=== PATIENT | male | born 1985 | race Two or more races ===

== ENCOUNTER 2019-10-31 23:14 | Emergency (ER) | payer MEDICARE, OTHER ==
[~2019-10-31] VITALS: Ht 180.3 cm; Wt 133.8 kg
--- NOTE | 2019-10-31 23:41 | NUR ---
Dr. De León at bedside for MSE.
[2019-10-31] MEDS ORDERED: predniSONE 20 MG TABLET ONE (23:55)
[2019-10-31] MEDS ORDERED: KETOROLAC TROMETHAMINE 60 MG INJ IM ONE (23:56)
[2019-10-31] MEDS ORDERED: OSELTAMIVIR PHOSPHATE 75 MG CAPSULE ONE (23:56)
[2019-11-01] MEDS ORDERED: ALBUTEROL SULFATE 2.5 MG/3 ML NEBU NEB ONE
[2019-11-01] MEDS ORDERED: predniSONE 20 MG TABLET PO ONE
[2019-11-01] MEDS ORDERED: IPRATROPIUM BROMIDE 0.5 MG/2.5 ML NEBU NEB ONE
[2019-11-01] MEDS ORDERED: KETOROLAC TROMETHAMINE 60 MG INJ IM ONE
[2019-11-01] MEDS ORDERED: OSELTAMIVIR PHOSPHATE 75 MG CAPSULE PO ONE
--- NOTE | 2019-11-01 | NUR ---
Respiratory at bedside.
[2019-11-01] MEDS ORDERED: ALBUTEROL SULFATE 2.5 MG/3 ML NEBU ONE (00:01)
[2019-11-01] MEDS ORDERED: IPRATROPIUM BROMIDE 0.5 MG/2.5 ML NEBU ONE (00:01)
--- NOTE | 2019-11-01 00:22 | NUR ---
Pt out of ER for Xray.
[2019-11-01 00:24] LABS: BASOPHILS # (AUTO) 0.1 K/uL (0.0-8.0); EOSINOPHILS # (AUTO) 0.1 K/uL (0.0-0.7); EOSINOPHILS % (AUTO) 1.1 % (0.0-7.0); HEMATOCRIT 42.9 % (36.7-47.1); HEMOGLOBIN 14.7 g/dL (12.5-16.3); LYMPHOCYTES # (AUTO) 1.2 K/uL (20.0-40.0); LYMPHOCYTES % (AUTO) 14.4 % (20.5-51.5); MEAN CORPUSCULAR HEMOGLOBIN 29.6 uug (23.8-33.4); MEAN CORPUSCULAR HGB CONC 34 g/dL (32.5-36.3); MEAN CORPUSCULAR VOLUME 86.1 fL (73.0-96.2); MONOCYTES # (AUTO) 0.9 K/uL (2.0-10.0); MONOCYTES % (AUTO) 10.4 % (0.0-11.0); NEUTROPHILS % (AUTO) 73.1 % (38.5-71.5); PLATELET COUNT (AUTO) 283 K/uL (152-348); RED BLOOD CELL COUNT(AUTO) 4.98 MIL/uL (4.06-5.63); WHITE BLOOD COUNT (AUTO) 8.3 K/uL (3.6-10.2)
[2019-11-01 00:25] LABS: CREATININE 1.2 mg/dL (0.6-1.3); POTASSIUM 4.2 mmol/L (3.5-5.1)
[2019-11-01 00:31] LABS: BILIRUBIN,TOTAL 0.8 mg/dL (0.2-1.0); TOTAL PROTEIN, SERUM 6.9 g/dL (6.4-8.2)
--- NOTE | 2019-11-01 00:51 | NUR ---
Pt back to ER from Xray.
--- NOTE | 2019-11-01 03:39 | NUR ---
Patient discharged to home in stable conditon. Written and verbal after care instructions given. Patient verbalizes understanding of instructions. Pt ambulated out of ER with steady gait, no acute signs of distress, VSS, all belongings taken.
[2019-11-01 03:40] VITALS: BP 115/85
== END 2019-11-01 03:40 | disposition home or self-care (01) ==
LOC: ER 23:14
DX: B34.9 Viral infection, unspecified (principal); J45.901 Unspecified asthma with (acute) exacerbation; Z79.899 Other long term (current) drug therapy
CPT/HCPCS: 36415; 71046; 80053; 83880; 84484; 85025; 93005; 94640; 96372; 99285; J1885; J7512; 70030-TC; A4663; J3590